=== PATIENT | female | born 1945 | race Caucasian/White ===

== ENCOUNTER 2016-04-28 02:12 | Inpatient (IN) | payer OTHER ==
[~2016-04-28] VITALS: Ht 165.1 cm; Wt 94.3 kg
[2016-04-28] MEDS ORDERED: OMEP40CA37 PO (02:35)
[2016-04-28] MEDS ORDERED: CHLO25CA10 PO (02:35)
[2016-04-28] MEDS ORDERED: DILT120C2 PO (02:35)
[2016-04-28] MEDS ORDERED: BUPR-88 PO (02:35)
[2016-04-28] MEDS ORDERED: LEVO150T8 PO (02:35)
[2016-04-28] MEDS ORDERED: DICY20TA11 PO (02:35)
[2016-04-28] MEDS ORDERED: DULO30CA51 PO (02:35)
[2016-04-28] MEDS ORDERED: BROM3DRO OP (02:35)
[2016-04-28] MEDS ORDERED: ATOR10TA PO (02:35)
[2016-04-28] MEDS ORDERED: FURO20TA4 PO (02:35)
[2016-04-28] MEDS ORDERED: LOTE5DRO3 EACHEYE (02:35)
[2016-04-28] MEDS ORDERED: LORA10TA50 PO (02:35)
[2016-04-28] MEDS ORDERED: MONT10TA25 PO (02:35)
[2016-04-28] MEDS ORDERED: BESI5DRO OP (02:35)
[2016-04-28] MEDS ORDERED: FLUT16SP NS (02:35)
[2016-04-28] MEDS ORDERED: INSU100V7 SQ (02:35)
[2016-04-28] MEDS ORDERED: BENA1TAB18 PO (02:35)
[2016-04-28] MEDS ORDERED: LACT10SO7 PO (02:35)
[2016-04-28] MEDS ORDERED: MAG HYDROX/AL HYDROX/SIMETH 30 ML LIQUID UDC PO PRN (03:00)
[2016-04-28] MEDS ORDERED: MAGNESIUM HYDROXIDE 30 ML LIQUID UDC PO PRN (03:00)
[2016-04-28] MEDS ORDERED: CLONAZEPAM 0.5 MG TABLET PO PRN (03:00)
[2016-04-28] MEDS ORDERED: ACETAMINOPHEN 325 MG TABLET PO PRN (03:00)
[2016-04-28] MEDS: CLONAZEPAM 0.5 MG TABLET PO PRN ×2 (03:43→20:35)
[2016-04-28 04:03] VITALS: BP 147/87
[2016-04-28 07:05] LABS: BASOPHILS % (AUTO) 0.3 % (0.0-2.0); EOSINOPHILS # (AUTO) 0.1 K/uL (0.0-0.7); HEMATOCRIT 43.8 % (37.0-47.0); HEMOGLOBIN 14.6 g/dL (12.0-16.0); LYMPHOCYTES # (AUTO) 1.5 K/uL (0.8-4.8); LYMPHOCYTES % (AUTO) 32.3 % (20.5-51.5); MEAN CORPUSCULAR HEMOGLOBIN 27.7 uug (27.0-31.0); MEAN CORPUSCULAR HGB CONC 33 g/dL (32.0-37.0); MEAN CORPUSCULAR VOLUME 83.1 fL (81.0-99.0); MONOCYTES # (AUTO) 0.4 K/uL (0.1-1.30); MONOCYTES % (AUTO) 8.1 % (0.0-11.0); NEUTROPHILS # (AUTO) 2.7 K/uL (1.8-8.9); NEUTROPHILS % (AUTO) 57.3 % (38.5-71.5); PLATELET COUNT (AUTO) 90 K/uL (150-450); RED BLOOD CELL COUNT(AUTO) 5.27 MIL/uL (4.20-5.40); RED CELL DISTRIBUTION WIDTH 14.6 % (11.5-14.5); WHITE BLOOD COUNT (AUTO) 4.7 K/uL (4.0-11.2)
[2016-04-28 07:30] VITALS: BP 125/80
[2016-04-28 07:53] LABS: CALCIUM 8.7 mg/dL (8.5-10.1); CREATININE 0.9 mg/dL (0.6-1.3); MAGNESIUM 1.9 mg/dL (1.8-2.4); PHOSPHOROUS 2.6 mg/dL (2.5-4.9); POTASSIUM 4.1 mmol/L (3.5-5.1)
[2016-04-28 08:56] LABS: THYROID STIMULATING HORMONE 8.513 mIU/mL (0.358-3.740)
[2016-04-28 11:31] LABS: EOSINOPHILS % (MANUAL) 1 % (0-8); LYMPHOCYTES % (MANUAL) 36 % (20-40); MONOCYTES % (MANUAL) 6 % (2-10); NEUTROPHILS % (MANUAL) 57 % (42-75); PLATELET ESTIMATE SLIGHT DECREASED
[2016-04-28] MEDS ORDERED: BROMFENAC SODIUM 0.07% OP SCH (13:45)
[2016-04-28] MEDS ORDERED: LOTEPREDNOL 0.5% OPHT DROP 5 ML BOTTLE EACHEYE SCH (13:45)
[2016-04-28] MEDS ORDERED: DEXTROSE 50% 50 ML DISP.SYRIN IV PRN (13:45)
[2016-04-28] MEDS ORDERED: LACTULOSE 20 G/30 ML LIQUID UDC PO PRN (13:45)
[2016-04-28] MEDS ORDERED: Medication Not On Formulary EA (Omeprazole 40 MG) PO SCH (13:45)
[2016-04-28] MEDS: DILTIAZEM HCL CD 120 MG CAP.SR.24H PO SCH (15:15)
[2016-04-28] MEDS: BENAZEPRIL HCL 20 MG TABLET PO SCH (15:15)
[2016-04-28] MEDS: DULOXETINE 30 MG CAPSULE.DR PO SCH ×2 (15:16→17:00)
[2016-04-28] MEDS: buPROPion XL 150 MG TAB.SR.24H PO SCH (15:16)
[2016-04-28] MEDS: DICYCLOMINE HCL 20 MG TABLET PO SCH ×2 (15:18→17:00)
[2016-04-28] MEDS: HYDROCHLOROTHIAZIDE 12.5 MG CAPSULE PO SCH (15:19)
[2016-04-28 16:00] VITALS: BP 135/91
[2016-04-28] MEDS: FLUTICASONE PROP NASAL SPRAY 16 GM BOTTLE NS SCH (16:27)
[2016-04-28] MEDS: BLOOD SUGAR DIAGNOSTIC 1 EACH STRIP VI SCH ×2 (17:27→20:57)
[2016-04-28] MEDS: INSULIN REGULAR, HUMAN 300 UNIT/3 ML VIAL SQ PRN ×2 (17:32→21:01)
[2016-04-28] MEDS: MONTELUKAST SODIUM 10 MG TABLET PO SCH (20:35)
[2016-04-28] MEDS: ATORVASTATIN 10 MG TABLET PO SCH (20:35)
[2016-04-28] MEDS: INSULIN DETEMIR 300 UNIT/3 ML CARTRIDGE SQ SCH (20:59)
[2016-04-28 21:12] VITALS: BP 110/69
[2016-04-28] MEDS: TEMAZEPAM 7.5 MG CAPSULE PO PRN (22:15)
[2016-04-29] MEDS: LEVOTHYROXINE SODIUM 150 MCG TABLET PO SCH (06:22)
[2016-04-29] MEDS: PANTOPRAZOLE SODIUM 40 MG TABLET.DR PO SCH (06:22)
[2016-04-29] MEDS: BLOOD SUGAR DIAGNOSTIC 1 EACH STRIP VI SCH ×4 (06:30→20:32)
[2016-04-29 08:00] VITALS: BP 122/92
[2016-04-29] MEDS: HYDROCHLOROTHIAZIDE 12.5 MG CAPSULE PO SCH (08:17)
[2016-04-29] MEDS: DILTIAZEM HCL CD 120 MG CAP.SR.24H PO SCH (08:17)
[2016-04-29] MEDS: DULOXETINE 30 MG CAPSULE.DR PO SCH ×2 (08:17→17:23)
[2016-04-29] MEDS: buPROPion XL 150 MG TAB.SR.24H PO SCH (08:17)
[2016-04-29] MEDS: LORATADINE 10 MG TABLET PO SCH (08:18)
[2016-04-29] MEDS: FLUTICASONE PROP NASAL SPRAY 16 GM BOTTLE NS SCH ×2 (08:18→17:23)
[2016-04-29] MEDS: BENAZEPRIL HCL 20 MG TABLET PO SCH (08:18)
[2016-04-29] MEDS: DICYCLOMINE HCL 20 MG TABLET PO SCH ×2 (08:19→17:23)
[2016-04-29] MEDS ORDERED: Medication Not On Formulary EA (Loratadine 10 MG) PO SCH (09:00)
[2016-04-29] MEDS ORDERED: METFORMIN HCL 500 MG TABLET PO SCH ×2 (10:30→12:15)
[2016-04-29] MEDS: INSULIN REGULAR, HUMAN 300 UNIT/3 ML VIAL SQ PRN ×3 (12:22→20:40)
[2016-04-29 16:00] VITALS: BP 119/52
[2016-04-29] MEDS: METFORMIN HCL 500 MG TABLET PO SCH (17:23)
[2016-04-29 20:02] VITALS: BP 130/78
[2016-04-29] MEDS: ATORVASTATIN 10 MG TABLET PO SCH (20:31)
[2016-04-29] MEDS: MONTELUKAST SODIUM 10 MG TABLET PO SCH (20:31)
[2016-04-29] MEDS: TEMAZEPAM 7.5 MG CAPSULE PO PRN (20:32)
[2016-04-29] MEDS: INSULIN DETEMIR 300 UNIT/3 ML CARTRIDGE SQ SCH (20:38)
[2016-04-29] MEDS: CLONAZEPAM 0.5 MG TABLET PO PRN (22:18)
[2016-04-30] MEDS: LEVOTHYROXINE SODIUM 150 MCG TABLET PO SCH (06:31)
[2016-04-30] MEDS: PANTOPRAZOLE SODIUM 40 MG TABLET.DR PO SCH (06:31)
[2016-04-30] MEDS: BLOOD SUGAR DIAGNOSTIC 1 EACH STRIP VI SCH ×4 (06:32→20:44)
[2016-04-30 07:30] VITALS: BP 120/66
[2016-04-30] MEDS: buPROPion XL 150 MG TAB.SR.24H PO SCH (09:48)
[2016-04-30] MEDS: DULOXETINE 30 MG CAPSULE.DR PO SCH ×2 (09:48→16:49)
[2016-04-30] MEDS: DICYCLOMINE HCL 20 MG TABLET PO SCH ×2 (09:49→16:49)
[2016-04-30] MEDS: HYDROCHLOROTHIAZIDE 12.5 MG CAPSULE PO SCH (09:49)
[2016-04-30] MEDS: BENAZEPRIL HCL 20 MG TABLET PO SCH (09:49)
[2016-04-30] MEDS: DILTIAZEM HCL CD 120 MG CAP.SR.24H PO SCH (09:49)
[2016-04-30] MEDS: METFORMIN HCL 500 MG TABLET PO SCH ×2 (09:49→17:04)
[2016-04-30] MEDS: LORATADINE 10 MG TABLET PO SCH (09:49)
[2016-04-30] MEDS: FLUTICASONE PROP NASAL SPRAY 16 GM BOTTLE NS SCH ×2 (09:50→16:48)
[2016-04-30] MEDS: INSULIN REGULAR, HUMAN 300 UNIT/3 ML VIAL SQ PRN ×3 (11:49→21:08)
[2016-04-30 16:00] VITALS: BP 102/64
[2016-04-30] MEDS: LIDOCAINE 5% PATCH TD SCH (17:34)
[2016-04-30 20:00] VITALS: BP 118/77
[2016-04-30] MEDS: ATORVASTATIN 10 MG TABLET PO SCH (21:02)
[2016-04-30] MEDS: MONTELUKAST SODIUM 10 MG TABLET PO SCH (21:02)
[2016-04-30] MEDS: TEMAZEPAM 7.5 MG CAPSULE PO PRN (21:03)
[2016-04-30] MEDS: INSULIN DETEMIR 300 UNIT/3 ML CARTRIDGE SQ SCH (21:06)
[2016-04-30] MEDS: CLONAZEPAM 0.5 MG TABLET PO PRN (22:36)
[2016-05-01] MEDS: GUAIFENESIN/DEXTROMETHORPHAN 5 ML UDC PO PRN ×3 (01:40→22:11)
[2016-05-01] MEDS: PANTOPRAZOLE SODIUM 40 MG TABLET.DR PO SCH (06:43)
[2016-05-01] MEDS: LEVOTHYROXINE SODIUM 150 MCG TABLET PO SCH (06:43)
[2016-05-01] MEDS: BLOOD SUGAR DIAGNOSTIC 1 EACH STRIP VI SCH ×4 (06:44→21:00)
[2016-05-01 07:30] VITALS: BP 100/66
[2016-05-01] MEDS: buPROPion XL 150 MG TAB.SR.24H PO SCH (08:34)
[2016-05-01] MEDS: LORATADINE 10 MG TABLET PO SCH (08:34)
[2016-05-01] MEDS: DULOXETINE 30 MG CAPSULE.DR PO SCH ×2 (08:34→16:36)
[2016-05-01] MEDS: DICYCLOMINE HCL 20 MG TABLET PO SCH ×2 (08:34→16:36)
[2016-05-01] MEDS: METFORMIN HCL 500 MG TABLET PO SCH ×2 (08:34→17:05)
[2016-05-01] MEDS: DILTIAZEM HCL CD 120 MG CAP.SR.24H PO SCH ×2 (08:35→11:51)
[2016-05-01] MEDS: BENAZEPRIL HCL 20 MG TABLET PO SCH ×2 (08:35→11:50)
[2016-05-01] MEDS: HYDROCHLOROTHIAZIDE 12.5 MG CAPSULE PO SCH (08:35)
[2016-05-01] MEDS: FLUTICASONE PROP NASAL SPRAY 16 GM BOTTLE NS SCH ×2 (08:41→16:29)
[2016-05-01] MEDS ORDERED: DOCUSATE SODIUM 100 MG CAPSULE PO SCH (11:15)
[2016-05-01] MEDS: INSULIN REGULAR, HUMAN 300 UNIT/3 ML VIAL SQ PRN ×2 (11:46→16:35)
[2016-05-01 16:00] VITALS: BP 113/78
[2016-05-01] MEDS: LIDOCAINE 5% PATCH TD SCH (17:05)
[2016-05-01] MEDS: MONTELUKAST SODIUM 10 MG TABLET PO SCH (21:00)
[2016-05-01] MEDS: ATORVASTATIN 10 MG TABLET PO SCH (21:00)
[2016-05-01] MEDS: INSULIN DETEMIR 300 UNIT/3 ML CARTRIDGE SQ SCH (21:00)
[2016-05-01] MEDS: DOCUSATE SODIUM 100 MG CAPSULE PO SCH (21:00)
[2016-05-01 21:46] VITALS: BP 124/74
[2016-05-02] MEDS: BLOOD SUGAR DIAGNOSTIC 1 EACH STRIP VI SCH ×4 (06:21→21:01)
[2016-05-02] MEDS: LEVOTHYROXINE SODIUM 150 MCG TABLET PO SCH (06:25)
[2016-05-02] MEDS: PANTOPRAZOLE SODIUM 40 MG TABLET.DR PO SCH (06:26)
[2016-05-02 07:30] VITALS: BP 116/65
[2016-05-02] MEDS: HYDROCHLOROTHIAZIDE 12.5 MG CAPSULE PO SCH (08:35)
[2016-05-02] MEDS: LORATADINE 10 MG TABLET PO SCH (08:35)
[2016-05-02] MEDS: FLUTICASONE PROP NASAL SPRAY 16 GM BOTTLE NS SCH ×2 (08:35→16:51)
[2016-05-02] MEDS: METFORMIN HCL 500 MG TABLET PO SCH ×2 (08:35→17:33)
[2016-05-02] MEDS: buPROPion XL 150 MG TAB.SR.24H PO SCH (08:35)
[2016-05-02] MEDS: DULOXETINE 30 MG CAPSULE.DR PO SCH (08:35)
[2016-05-02] MEDS: BENAZEPRIL HCL 20 MG TABLET PO SCH (08:36)
[2016-05-02] MEDS: DILTIAZEM HCL CD 120 MG CAP.SR.24H PO SCH (08:36)
[2016-05-02] MEDS: DICYCLOMINE HCL 20 MG TABLET PO SCH ×2 (08:37→16:51)
[2016-05-02] MEDS ORDERED: DOCUSATE SODIUM 100 MG CAPSULE PO PRN (09:00)
[2016-05-02] MEDS: INSULIN REGULAR, HUMAN 300 UNIT/3 ML VIAL SQ PRN ×3 (11:44→21:10)
[2016-05-02 15:21] VITALS: BP 97/59
[2016-05-02] MEDS: LIDOCAINE 5% PATCH TD SCH (17:33)
[2016-05-02 20:19] VITALS: BP 110/67
[2016-05-02] MEDS ORDERED: DULOXETINE 60 MG CAPSULE.DR PO SCH (21:00)
[2016-05-02] MEDS: DOCUSATE SODIUM 100 MG CAPSULE PO SCH (21:06)
[2016-05-02] MEDS: ATORVASTATIN 10 MG TABLET PO SCH (21:06)
[2016-05-02] MEDS: MONTELUKAST SODIUM 10 MG TABLET PO SCH (21:06)
[2016-05-02] MEDS: INSULIN DETEMIR 300 UNIT/3 ML CARTRIDGE SQ SCH (21:11)
[2016-05-03] MEDS: CLONAZEPAM 0.5 MG TABLET PO PRN (01:09)
[2016-05-03] MEDS: PANTOPRAZOLE SODIUM 40 MG TABLET.DR PO SCH (06:49)
[2016-05-03] MEDS: LEVOTHYROXINE SODIUM 150 MCG TABLET PO SCH (06:49)
[2016-05-03] MEDS: BLOOD SUGAR DIAGNOSTIC 1 EACH STRIP VI SCH ×2 (06:49→12:07)
[2016-05-03 07:30] VITALS: BP 111/66
[2016-05-03] MEDS: LORATADINE 10 MG TABLET PO SCH (08:16)
[2016-05-03] MEDS: FLUTICASONE PROP NASAL SPRAY 16 GM BOTTLE NS SCH (08:16)
[2016-05-03] MEDS: DILTIAZEM HCL CD 120 MG CAP.SR.24H PO SCH (08:17)
[2016-05-03] MEDS: DICYCLOMINE HCL 20 MG TABLET PO SCH (08:17)
[2016-05-03] MEDS: HYDROCHLOROTHIAZIDE 12.5 MG CAPSULE PO SCH (08:17)
[2016-05-03] MEDS: buPROPion XL 150 MG TAB.SR.24H PO SCH (08:17)
[2016-05-03 08:18] VITALS: BP 111/66
[2016-05-03] MEDS: BENAZEPRIL HCL 20 MG TABLET PO SCH (08:18)
[2016-05-03 08:24] LABS: ALBUMIN 3.3 g/dL (3.4-5.0); BILIRUBIN,TOTAL 0.6 mg/dL (0.2-1.0); CALCIUM 9.4 mg/dL (8.5-10.1); CREATININE 0.8 mg/dL (0.6-1.3); MAGNESIUM 1.9 mg/dL (1.8-2.4); PHOSPHOROUS 4.5 mg/dL (2.5-4.9); POTASSIUM 4.3 mmol/L (3.5-5.1); TOTAL PROTEIN, SERUM 6.6 g/dL (6.4-8.2)
[2016-05-03 08:35] LABS: BASOPHILS % (AUTO) 0.6 % (0.0-2.0); EOSINOPHILS # (AUTO) 0.3 K/uL (0.0-0.7); EOSINOPHILS % (AUTO) 5.2 % (0.0-7.0); HEMATOCRIT 40.3 % (37.0-47.0); HEMOGLOBIN 13.3 g/dL (12.0-16.0); LYMPHOCYTES # (AUTO) 1.2 K/uL (0.8-4.8); LYMPHOCYTES % (AUTO) 20.3 % (20.5-51.5); MEAN CORPUSCULAR HEMOGLOBIN 27.8 uug (27.0-31.0); MEAN CORPUSCULAR HGB CONC 33 g/dL (32.0-37.0); MONOCYTES # (AUTO) 0.5 K/uL (0.1-1.30); MONOCYTES % (AUTO) 8.3 % (0.0-11.0); NEUTROPHILS # (AUTO) 4.1 K/uL (1.8-8.9); NEUTROPHILS % (AUTO) 65.6 % (38.5-71.5); PLATELET COUNT (AUTO) 93 K/uL (150-450); RED CELL DISTRIBUTION WIDTH 14.9 % (11.5-14.5); WHITE BLOOD COUNT (AUTO) 6.1 K/uL (4.0-11.2)
[2016-05-03] MEDS ORDERED: DULOXETINE 30 MG CAPSULE.DR PO SCH (09:00)
[2016-05-03] MEDS: INSULIN REGULAR, HUMAN 300 UNIT/3 ML VIAL SQ PRN (12:06)
== END 2016-05-03 14:30 | disposition home or self-care (01) | DRG 885 ==
LOC: ER 02:22 → GPS 02:31
PROVIDERS: ADMIT Psychiatry & Neurology Psychiatry; ATTEND Internal Medicine
DX: F33.2 Major depressive disorder, recurrent severe without psychotic features (principal); E11.65 Type 2 diabetes mellitus with hyperglycemia; E03.9 Hypothyroidism, unspecified; Z79.4 Long term (current) use of insulin; Z91.14 Patient's other noncompliance with medication regimen; Z88.2 Allergy status to sulfonamides; H26.9 Unspecified cataract; E78.5 Hyperlipidemia, unspecified; K21.9 Gastro-esophageal reflux disease without esophagitis; Z91.19 Patient's noncompliance with other medical treatment and regimen; Z79.899 Other long term (current) drug therapy; K58.1 Irritable bowel syndrome with constipation; G47.9 Sleep disorder, unspecified; D69.6 Thrombocytopenia, unspecified; G89.4 Chronic pain syndrome; I10 Essential (primary) hypertension; F10.10 Alcohol abuse, uncomplicated; Y90.9 Presence of alcohol in blood, level not specified; M19.90 Unspecified osteoarthritis, unspecified site; E66.9 Obesity, unspecified; Z68.34 Body mass index [BMI] 34.0-34.9, adult
CPT/HCPCS: 36415; 83735; 84100; 84443; 85025; 97001; A4663; J1815; J3535